=== PATIENT | male | born 2000 | race Caucasian/White ===

== ENCOUNTER 2020-01-28 14:38 | Emergency (ER) | payer OTHER, SELFPAY ==
--- NOTE | ~2020-01-28 | XR_ITS ---
XR knee RT 3V DATE: 01/28/2020 15:11 INDICATION: Twisted knee. Posterior and lateral right knee pain. TECHNIQUE: Crosstable lateral, AP and oblique views COMPARISON: None FINDINGS: No fracture or dislocation or joint effusion, periosteal reaction or bone destruction, radi opaque intra-articular loose body or chondrocalcinosis. Joint spaces are preserved. IMPRESSION: Negative Reviewed, dictated and finalized at location B. IMPRESSION: Negative
[2020-01-28 14:44] VITALS: BP 139/79; PULSE 82; RESP 17; TEMP 36.7; O2SAT 98
--- NOTE | 2020-01-28 14:45 | ED.GENADULT ---
HPI - General Adult General Chief complaint: Extremity Injury, Lower Stated complaint: right knee injury Time Seen by Provider: 01/28/20 14:44 Source: patient Mode of arrival: ambulatory Limitations: no limitations History of Present Illness HPI narrative: Patient is here for evaluation of right knee pain after he slipped on a wet floor and fell this morning. He states that he feels his right kneecap is dislocated or broken. He took 1200 mg of ibuprofen prior to arrival. He did walk into the emergency room. Onset (ago): hour(s) Location: right and lower extremity Severity scale (1-10): >10 (with movement) Relieving factors: rest Exacerbating factors: movement Associated symptoms: denies other symptoms Treatments prior to arrival: NSAID Related Data Home Medications Medication Instructions Recorded Confirmed No Home Medications 01/28/20 01/28/20 Allergies Allergy/AdvReac Type Severity Reaction Status Date / Time bupropion Allergy Severe VIOLENT Verified 01/28/20 15:03 BEHAVIOR Review of Systems Review of Systems: All systems reviewed & are unremarkable except as noted in HPI and below FORMERLY [facility] Social History Social History (Updated 01/28/20 @ 15:02 by Frannie Bass PA-C) Smoking status: Never smoker Alcohol intake: never Substance use: current Occupation/Education: unemployed Additional occupation/education comments: disability Gender identity (if verbalized by the patient): Male Exam Const: General: no acute distress and alert Orientation/consciousness: patient oriented x3 HENMT: Head: normal to inspection Resp: Effort & Inspection: normal respiratory effort Auscultation: clear to auscultation bilaterally Cardio: Rate: regular rate Rhythm: regular rhythm Peripheral pulses: dorsalis pedis present Neuro: General: patient oriented x3 and moves all extremities Extrem: General: normal to inspection and other (extreme pain to mild palpation of right kneecap) Right lower extremity: normal to inspection and normal capillary refill Course Course Emergency Course: X-ray showed no fracture or dislocation on the right knee. No joint effusion. Will place in a knee immobilizer, continue to treat with ibuprofen and ice. Follow-up with primary care physician Discharge Plan Discharge Clinical Impression: Right knee sprain Qualifiers: Encounter type: initial encounter Involved ligament of knee: lateral collateral ligament Qualified Code(s): S83.421A - Sprain of lateral collateral ligament of right knee, initial encounter Patient Disposition: Home, Self-Care Condition: Stable Instructions: Antibiotic Form, Knee Sprain (ED), Knee Immobilizer (ED) Additional Instructions: For your knee immobilizer for the next 2 to 3 days then as needed for comfort. Apply ice to your knee, 20 minutes at a time 2-3 times a day. Take ibuprofen 800 mg every 8 hours, please take with food to avoid GI upset. Follow-up with your primary care physician if not improved after the weekend for further evaluation. Prescriptions: No Action No Home Medications RF: 0 Follow-up/Referrals: Bhanu Tyler MD [Physician] - PHYSICIAN,[facility] [facility] [Primary Care Provider] - Time of Disposition: 15:30
--- NOTE | 2020-01-28 15:39 | PC.NURSE ---
Knee Immobilizer does not fit pt properly (largest size is too small). Pt aware. EDP aware.
== END 2020-01-28 16:07 | disposition home or self-care (01) ==
PROVIDERS: Emergency Provider Emergency Medicine
DX: S83.421A Sprain of lateral collateral ligament of right knee, initial encounter (principal); W01.0XXA Fall on same level from slipping, tripping and stumbling without subsequent striking against object, initial encounter
CPT/HCPCS: 73562; 99283

== ENCOUNTER 2020-01-29 12:29 | Emergency (ER) | payer OTHER, SELFPAY ==
[2020-01-29 12:31] VITALS: BP 104/84; PULSE 86; RESP 18; TEMP 37; O2SAT 100
--- NOTE | 2020-01-29 12:31 | PC.NURSE ---
Pt states that medic is a fucking moron, he said i was 22 and im only 19
--- NOTE | 2020-01-29 13:00 | PC.NURSE ---
Pt kicked out the vending machine technician stating i want to know what the fuck is going on, i already had an xray Charge nurse notified
--- NOTE | 2020-01-29 13:30 | PC.NURSE ---
Kristen RN speaking with patient at this time. Pt agitated at this time.
--- NOTE | 2020-01-29 13:31 | PC.NURSE ---
Pt called out cussing at this RN stating that he wanted to speak with someone that knew what the f is going on . Pt also states that he has been here to fn days and wants help. Pt then states that he FN should have never came to this hospital. I informed pt that i would get his
--- NOTE | 2020-01-29 13:34 | ED.LOWEXIN ---
HPI - Extremity Injury (Lower) General Chief Complaint: Extremity Injury, Lower Stated Complaint: R HIP AND LEG PAIN Time Seen by Provider: 01/29/20 12:33 Source: patient Mode of arrival: EMS Limitations: no limitations History of Present Illness HPI Narrative: Patient presents via EMS with chief complaint of worsening right-sided sciatica pain. Patient states that he came to the emergency department yesterday to be seen for sciatica pain which was worse than his right knee. Patient states that his right knee was imaged and Shakeel wrap was given however he was not given crutches to assist him with walking. Patient states that he did not fall to his knee or back but he stumble they caught himself which caused an exacerbation of his right-sided sciatica yesterday. Patient denies loss of bowel or bladder function. Patient has paresthesia in upper lower extremities. Patient reports having chronic sciatica in the past. Related Data Home Medications Medication Instructions Recorded Confirmed No Home Medications 01/28/20 01/28/20 Allergies Allergy/AdvReac Type Severity Reaction Status Date / Time bupropion Allergy Severe VIOLENT Verified 01/29/20 13:44 BEHAVIOR Review of Systems Review of Systems: Narrative: CONSTITUTIONAL: Denies fever, chills, or sweats. EYES: Denies visual changes, redness, or discharge. ENT: Denies rhinorrhea, congestion, sore throat, or otalgia. CARDIOVASCULAR: Denies chest pain, palpitations, or edema. RESPIRATORY: Denies cough or dyspnea. GASTROINTESTINAL: Denies abdominal pain, nausea, vomiting, or diarrhea. GENITOURINARY: Denies dysuria or hematuria. SKIN: Denies rash or itching. MUSCULOSKELETAL: Reports right-sided sciatica pain denies joint pain, or myalgia. NEUROLOGIC: Denies headache, numbness, dizziness, or weakness. PSYCHIATRIC: Denies anxiety or depression. [facility] Social History Social History (Updated 01/28/20 @ 15:02 by Frannie Bass PA-C) Smoking status: Never smoker Alcohol intake: never Substance use: current Additional occupation/education comments: disability Gender identity (if verbalized by the patient): Male Exam Narrative: Exam Narrative: GENERAL: Well-appearing, well-nourished, and in no acute distress. Obese. HEAD: Normocephalic, atraumatic. EYES: PERRLA and EOMI. NECK: Supple. No adenopathy or masses. Range of motion intact. CHEST: Clear to auscultation. No respiratory distress. No wheezes rales or rhonchi HEART: Regular rate and rhythm. EXTREMITIES: Normal range of motion. No edema. BACK: No outward signs of injury. No spinal tenderness with palpation. Patient reports irritation of right-sided sciatica with palpation of right glutes. Patient declines straight leg raise. SKIN: Warm, dry, no rash. NEURO: No focal deficits. Alert and oriented x3. PSYCH: Normal mood and affect. Course Course Emergency Course: Patient has been cursing and yelling at myself and staff. Patient has been warned on numerous occasions that his behavior is inappropriate. Patient continues to yell profanities to staff despite warnings. Patient is dismissing staff and not allow radiology to take imaging nor is he allowing the nurse to reassess him and provide treatment. Patient has been asked to leave the emergency department due to his aggressive and inappropritat verbal behavior and refusal of care. He does not show signs of needing any emergent intervention for his presenting complaint. Patient is urged to follow-up with his primary care for further management and evaluation. Vital Signs Vital signs: Vital Signs Temperature 98.6 F 01/29/20 12:31 Pulse Rate 86 01/29/20 12:31 Respiratory Rate 18 01/29/20 12:31 Blood Pressure 104/84 01/29/20 12:31 Pulse Oximetry 100 01/29/20 12:31 Temperature 98.6 F 01/29/20 12:31 Pulse Rate 86 01/29/20 12:31 Respiratory Rate 18 01/29/20 12:31 Blood Pressure 104/84 01/29/20 12:31 Pulse Oximetry 100 0
[2020-01-29] MEDS: methylPREDNISolone SOD SUCC 125 MG VIAL IM (13:38)
[2020-01-29] MEDS: KETOROLAC (*BKC) 60 MG/2 ML VIAL 30 MG IM (13:38)
--- NOTE | 2020-01-29 13:40 | PC.NURSE ---
PA spoke with pt and told him he will be discharged, she states that pt was cussing at her and states that he is going [facility].
--- NOTE | 2020-01-29 13:50 | PC.NURSE ---
This RN discharging pt, pt states I am going to [facility], this happens everytime i come here i always have to come back. I can't walk! I need crutches This RN explains that pt is over the weight limit. He states that [employer] sent me here to get crutches Im going to be calling my interventional nurse and suing you Security present and helping pt to the exit
== END 2020-01-29 14:12 | disposition home or self-care (01) ==
PROVIDERS: Emergency Provider Emergency Medicine
DX: M54.31 Sciatica, right side (principal)
CPT/HCPCS: 96372; 99284; J1885; J2930

== ENCOUNTER 2024-03-24 01:55 | Emergency (ER) | payer OTHER, SELFPAY ==
[2024-03-24 02:17] VITALS: BP 130/71; PULSE 68; RESP 15; TEMP 36.4; O2SAT 100
--- NOTE | 2024-03-24 03:05 | ED.GENADULT ---
HPI - General Adult General Chief complaint: Fall Stated complaint: fall Time Seen by Provider: 03/24/24 02:31 History of Present Illness HPI narrative: this is a 23-year-old male requesting a work note after a fall. Patient slipped at work and landed on his back. He has been able to get up and complete his daily work. He was instructed to go to the hospital to get checked out to make sure that nothing was wrong. patient has pain in the right paralumbar area. No radiation down his leg. No difficulty urinating, bowel incontinence or weakness to the leg. Patient has not taking anything for pain medication Related Data Home Medications Medication Instructions Recorded Confirmed No Home Medications 01/28/20 01/28/20 Allergies Allergy/AdvReac Type Severity Reaction Status Date / Time bupropion Allergy Severe VIOLENT Verified 10/22/23 13:16 BEHAVIOR bee pollen Allergy Unknown Verified 03/24/24 02:25 shellfish derived Allergy Unknown Verified 03/24/24 02:25 [facility]LY [facility] Social History Social History (System 10/22/23 @ 13:16 by Ferny Alcocer) Smoking status: Never smoker Alcohol intake: never Substance use: current Occupation/Education: unemployed Additional occupation/education comments: disability Gender identity (if verbalized by the patient): Male Exam Narrative: APPEARANCE: No apparent distress. Head: atraumatic. EYES: EOMI, NOSE: Atraumatic NECK/back: no midline spinal tenderness. Tenderness to palpation over the right paralumbar muscles. RESPIRATORY: No increased rate of breathing CARDIOVASCULAR: RRR, ABDOMINAL: Non-distended MUSCULOSKELETAl: No obvious deformities NEURO: Alert. Cranial nerves 2-12 grossly intact. Sensation light touch, motor function cerebellar function intact for 4 extremities. Gait exam was normal. SKIN:: Warm, dry. Normal color PSYCHIATRIC: Normal affect Course Vital Signs Vital signs: Vital Signs Temperature 97.5 F L 03/24/24 02:17 Pulse Rate 68 03/24/24 02:17 Respiratory Rate 15 03/24/24 02:17 Blood Pressure 130/71 03/24/24 02:17 Pulse Oximetry 100 03/24/24 02:17 Oxygen Delivery Room Air 03/24/24 02:17 Temperature 97.5 F L 03/24/24 02:17 Pulse Rate 68 03/24/24 02:17 Respiratory Rate 15 03/24/24 02:17 Blood Pressure 130/71 03/24/24 02:17 Pulse Oximetry 100 03/24/24 02:17 Oxygen Delivery Room Air 03/24/24 02:17 Medical Decision Making MDM Narrative Medical decision making narrative: -Course: 23-year-old male presenting after a ground level fall. Physical exam remarkable. no indication for imaging. Patient provided a work note and discharged. Given return precautions -DDX includes but is not limited to: lumbago, soft tissue injury, bony injury, sciatica -Co-morbidities complicating care: history of back pain -Shared decision making / Disposition: discharged. Vital Signs Vital Signs: Vital Signs Temperature 97.5 F L 03/24/24 02:17 Pulse Rate 68 03/24/24 02:17 Respiratory Rate 15 03/24/24 02:17 Blood Pressure 130/71 03/24/24 02:17 Pulse Oximetry 100 03/24/24 02:17 Oxygen Delivery Room Air 03/24/24 02:17 Temperature 97.5 F L 03/24/24 02:17 Pulse Rate 68 03/24/24 02:17 Respiratory Rate 15 03/24/24 02:17 Blood Pressure 130/71 03/24/24 02:17 Pulse Oximetry 100 03/24/24 02:17 Oxygen Delivery Room Air 03/24/24 02:17 Discharge Plan Discharge Clinical Impression: Lumbago Patient Disposition: Home, Self-Care Condition: Stable Instructions: Antibiotic Form Additional Instructions: You were seen in the emergency department after a fall. There were no concerning findings on your exam. He can return to work with no restrictions. He can use Motrin Tylenol for pain as needed. Return to ED if you feel weakness to legs, severe pain inability urinate or bowel incontinence. Prescriptions: No Action No Home Medications
== END 2024-03-24 03:29 | disposition home or self-care (01) ==
LOC: ANHED 03:22
PROVIDERS: Emergency Provider Emergency Medicine
DX: M54.50 Low back pain, unspecified (principal); W01.0XXA Fall on same level from slipping, tripping and stumbling without subsequent striking against object, initial encounter
CPT/HCPCS: 99282

== ENCOUNTER 2024-03-27 18:51 | Emergency (ER) | payer OTHER, SELFPAY ==
[2024-03-27 18:59] VITALS: BP 112/60; PULSE 70; RESP 16; TEMP 36.5; O2SAT 100
--- NOTE | 2024-03-27 19:06 | ED.MALEGU ---
HPI - Male Genitourinary General Chief complaint: Urogenital-Male Stated complaint: STD Testing Time Seen by Provider: 03/27/24 19:00 Source: patient Mode of arrival: ambulatory Limitations: no limitations History of Present Illness HPI Narrative: Tunde is a 23-year-old male patient presenting to the clinic today with complaints of possible STD exposure. He reports that a female he was sleeping with contacted him and told her that she tested positive for chlamydia. He and his other significant other is in the clinic today to be tested/treated. Symptoms or any other concerns. Denies any penile discharge or pain with urination. Related Data Allergies Allergy/AdvReac Type Severity Reaction Status Date / Time bupropion Allergy Severe VIOLENT Verified 03/27/24 18:56 BEHAVIOR bee pollen Allergy Unknown Verified 03/27/24 18:56 shellfish derived Allergy Unknown Verified 03/27/24 18:56 Review of Systems Review of Systems: Pertinent positives per HPI. Patient denies any fever, chills, rash, headache, visual changes, dizziness, cough, runny nose, sore throat, shortness of breath, chest pain, palpitations, nausea, vomiting, diarrhea, constipation, abdominal pain, or any urinary issues. PMFSH Social History Social History Smoking status: Never smoker Alcohol intake: never Substance use: current Occupation/Education: unemployed Additional occupation/education comments: disability Gender identity (if verbalized by the patient): Male Comments At the time of my signature, I reviewed and agree with the nursing past medical, surgical, social, and family history. There is no relevant family history pertinent to the patient complaint. Exam Narrative: General: Well-developed, well nourished, in no apparent distress. Head: Normocephalic, atraumatic. Cardio: Regular rate and rhythm, s1 and s2 normal, no murmur appreciated. Resp: Clear to auscultation bilaterally, no rhonchi, rales, wheezing or rubs. Abdomen: Soft, pliable, bowel sounds present in all quadrants, non-tender to palpation, no organomegly, no CVAT tenderness. : Deferred Course Course Emergency Course: Portions of this record may have been created with voice recognition software. Level of Care: Express Care Visit Vital Signs Vital signs: Vital Signs Temperature 36.5 C 03/27/24 18:59 Pulse Rate 70 03/27/24 18:59 Respiratory Rate 16 03/27/24 18:59 Blood Pressure 112/60 03/27/24 18:59 Pulse Oximetry 100 03/27/24 18:59 Oxygen Delivery Room Air 03/27/24 18:59 Temperature 36.5 C 03/27/24 18:59 Pulse Rate 70 03/27/24 18:59 Respiratory Rate 16 03/27/24 18:59 Blood Pressure 112/60 03/27/24 18:59 Pulse Oximetry 100 03/27/24 18:59 Oxygen Delivery Room Air 03/27/24 18:59 Vital signs reviewed MDM - Male Genitourinary MDM Narrative Medical decision making narrative: At the time of visit patient is resting comfortably on the exam table. Patient appears to be nontoxic. Labs: Gonorrhea, chlamydia, and Trichomonas testing was performed and sent to the lab Plan: Patient has had exposure to chlamydia. Will treat with doxycycline and Rocephin 500 mg IM given for gonorrhea coverage. Supportive measures were discussed with the patient and they voiced understanding discharge instructions and agrees to treatment plan. Return precautions reviewed Differential Diagnosis Differential diagnosis: Likely urinary tract infection, urethritis, epididymitis, prostatitis and other (STI) Discharge Plan Discharge Clinical Impression: Exposure to chlamydia Patient Disposition: Home, Self-Care Condition: Stable Instructions: Antibiotic Form, Chlamydia (ED), Safe Sex Practices (ED) Additional Instructions: Rocephin 500 mg IM given in the clinic today to treat gonorrhea Take doxycycline as prescribed-this will treat chlamydia We have teste
[2024-03-27] MEDS: cefTRIAXone 500 MG, LIDOCAINE HCL 1% LOCAL INJ 1 ML IM (19:14)
[2024-03-28 19:53] LABS: Trichomonas Vag PCR NOT DETECTED (NOT DETECTE)
[2024-03-28 20:20] LABS: Chlamydia trachomatis NOT DETECTED (NOT DETECTE); Neisseria gonorrhoeae PCR NOT DETECTED (NOT DETECTE)
== END 2024-03-27 19:20 | disposition home or self-care (01) ==
PROVIDERS: Emergency Provider Nurse Practitioner Family
DX: Z20.2 Contact with and (suspected) exposure to infections with a predominantly sexual mode of transmission (principal)
CPT/HCPCS: 87491; 87591; 87661; 96372; 99213; G0463; J0696

== ENCOUNTER 2024-04-10 12:59 | Emergency (ER) | payer OTHER, SELFPAY ==
[2024-04-10 13:06] VITALS: BP 128/62; PULSE 88; RESP 16; TEMP 39.6; O2SAT 99
[2024-04-10] MEDS: IBUPROFEN 600 MG TABLET PO (14:01)
--- NOTE | 2024-04-10 22:31 | ED.URI ---
HPI - URI/Sore Throat General Chief Complaint: Upper Respiratory Infection Stated Complaint: Sore Throat/Chills/Body Aches Time Seen by Provider: 04/10/24 13:57 Source: patient, RN notes reviewed and old records reviewed Mode of arrival: ambulatory Limitations: no limitations History of Present Illness HPI Narrative: 23-year-old male to Express Care for complaint of fever, chills, body aches, sore throat, fever since yesterday. Patient denies cough, shortness of breath, chest pain, ear pain. Patient has not attempted to treat at home; states he does not have any [id number] medications at home. Patient able to tolerate fluids by mouth. Respirations even and nonlabored. Patient appears tired and acutely ill. No acute distress noted. Related Data Allergies Allergy/AdvReac Type Severity Reaction Status Date / Time bupropion Allergy Severe VIOLENT Verified 04/10/24 13:13 BEHAVIOR bee pollen Allergy Unknown Verified 04/10/24 13:13 shellfish derived Allergy Unknown Verified 04/10/24 13:13 Review of Systems Review of Systems: All systems reviewed & are unremarkable except as noted in HPI and below Constitutional: Constitutional: Reports as per HPI, Reports body ache(s), Reports chills, Reports fatigue and Reports fever(s) Eyes: Eyes: Reports no additional eye complaints ENT: Reports as per HPI, Denies otalgia and Reports sore throat Cardiovascular: Cardiovascular: Reports no additional cardiovascular complaints, Denies chest pain and Denies dyspnea Respiratory: Respiratory: Reports no additional respiratory complaints, Denies cough and Denies dyspnea Musculoskeletal: Musculoskeletal: Reports no additional musculoskeletal complaints Neurologic: Reports system reviewed and no additional complaints, except as documented Psychiatric: Psychiatric: Reports no additional psychiatric complaints PMFSH Social History Social History Smoking status: Never smoker Alcohol intake: never Substance use: current Occupation/Education: unemployed Additional occupation/education comments: disability Gender identity (if verbalized by the patient): Male Comments At the time of my signature, I reviewed and agree with the nursing past medical, surgical, social, and family history. There is no relevant family history pertinent to the patient complaint. Exam Const: General: cooperative, no acute distress, alert, ill appearing acutely, tired appearing, uncomfortable and well nourished Nutritional Appearance: well nourished Orientation/consciousness: patient oriented x3 Limitations: no limitations HENMT: Head: normal to inspection Ears: external ears normal Face/Nose/Sinus: Normal external nose present, Normal nares present, normal facial exam, No erythema and No edema Face and sinus: normal facial exam, no erythema and no edema Mouth: Yes Normal oral and palatal mucosa present Throat: abnormal tonsil bilateral erythema, exudates and hypertrophy 2+, posterior oropharynx abnormal erythema and postnasal drainage Eyes: General: appearance normal, both eyes and all related structures Neck: Neck: normal visual inspection, full ROM and no meningeal signs Lymphatic: no lymphadenopathy noted and no lymphedema noted Chest: Chest palpation & inspection: normal inspection of the chest Resp: Effort & Inspection: normal respiratory effort and able to speak in complete sentences Auscultation: clear to auscultation bilaterally Cardio: Jugular venous distension: no JVD Rate: regular rate Rhythm: regular rhythm Back/Spine/Pelvis: Cervical Spine: cervical ROM normal Skin: General skin exam: no rashes or lesions noted, turgor normal and pallor Neuro: General: patient oriented x3, gait normal, moves all extremities and no meningeal signs Speech: normal speech Gait exam (Neuro): Normal gait present Extrem: General: normal to inspection, full ROM and capillary refill norm
== END 2024-04-10 14:03 | disposition home or self-care (01) ==
PROVIDERS: Emergency Provider Nurse Practitioner Family
DX: J02.0 Streptococcal pharyngitis (principal); Z20.822 Contact with and (suspected) exposure to COVID-19
CPT/HCPCS: 87426; 87804; 87880; 99213; A9270; G0463

== ENCOUNTER 2024-06-11 18:44 | Emergency (ER) | payer OTHER, SELFPAY ==
[2024-06-11 18:49] VITALS: BP 114/69; PULSE 79; RESP 16; TEMP 37.1; O2SAT 99
--- NOTE | 2024-06-11 18:57 | ED.SKABFB ---
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 Pt applied yellow mustard to the finger, which took the stinging pain away. Says his hand is locked up and feels like mouth is dry. Denies sob, wheezing, lip swelling, n/v/d/f/c. Related Data Allergies Allergy/AdvReac Type Severity Reaction Status Date / Time bupropion Allergy Severe VIOLENT Verified 04/10/24 13:13 BEHAVIOR bee pollen Allergy Unknown Verified 04/10/24 13:13 shellfish derived Allergy Unknown Verified 04/10/24 13:13 Review of Systems Review of Systems: CONSTITUTIONAL: Denies body aches, fever, chills, or sweats. EYES: Denies visual changes, redness, or discharge. ENT: Denies rhinorrhea, congestion CARDIOVASCULAR: Denies chest pain, palpitations, or edema. RESPIRATORY: Denies cough or dyspnea. GASTROINTESTINAL: Denies abdominal pain, nausea, vomiting, or diarrhea. SKIN: reports insect sting left abdomen, left hand MUSCULOSKELETAL: Denies back pain, joint pain, or myalgia. NEUROLOGIC: Denies headache, numbness, tingling, or weakness. [facility] Social History Social History Smoking status: Never smoker Alcohol intake: never Substance use: current Occupation/Education: unemployed Additional occupation/education comments: disability Gender identity (if verbalized by the patient): Male Comments At time of signature, I have reviewed and agree with nursing past medical, surgical, social and family history unless otherwise noted. Please see nursing chart for further information. There is no relevant family history pertinent to the presenting complaint Exam Narrative: GENERAL: Well-appearing HEAD: Normocephalic, atraumatic. EYES: conjunctivae clear, and EOMI. ENT: Mucous membranes moist. Oropharynx without edema, erythema or lesions. NECK: Supple. No lymphadenopathy CHEST: Clear to auscultation. HEART: Regular rate and rhythm. SKIN: Warm, dry. approximately 1.5 cm area of erythema to left mid abdomen, no induration, streaking, warmth or tenderness. Left 3rd digit with superficial puncture to proximal phalanx, minimal swelling and erythema to the proximal phalanx, CMS intact. NEURO: Alert and oriented x3. Course Course Emergency Course: Patient is aware of diagnosis, understands and agrees to treatment plan. Anticipatory guidance given. Patient agrees to follow-up as directed and is aware of reasons to seek care at the emergency department. Portions of this record may have been created with voice recognition software Level of Care: Express Care Visit Vital Signs Vital signs: Vital Signs Temperature 98.8 F 06/11/24 18:49 Pulse Rate 79 06/11/24 18:49 Respiratory Rate 16 06/11/24 18:49 Blood Pressure 114/69 06/11/24 18:49 Pulse Oximetry 99 06/11/24 18:49 Oxygen Delivery Room Air 06/11/24 18:49 Temperature 98.8 F 06/11/24 18:49 Pulse Rate 79 06/11/24 18:49 Respiratory Rate 16 06/11/24 18:49 Blood Pressure 114/69 06/11/24 18:49 Pulse Oximetry 99 06/11/24 18:49 Oxygen Delivery Room Air 06/11/24 18:49 Reviewed MDM - Skin/Abscess/Foreign Bdy MDM Narrative Medical decision making narrative: mustard was cleansed off of the digit, minimal erythema and swelling noted. Advised Benadryl. Instructed patient to go to nearest ER immediately for any worsening symptoms including but not limited to: fever, spreading rash, pain, sore throat, headache, dizziness, chest pain, trouble breathing, or any symptoms concerning to the patient. Differential Diagnosis Differential diagnosis: Likely
== END 2024-06-11 19:21 | disposition home or self-care (01) ==
PROVIDERS: Emergency Provider Nurse Practitioner Family
DX: T63.441A Toxic effect of venom of bees, accidental (unintentional), initial encounter (principal); S60.423A Blister (nonthermal) of left middle finger, initial encounter
CPT/HCPCS: 99211; G0463

== ENCOUNTER 2024-09-23 12:53 | Emergency (ER) | payer OTHER, SELFPAY ==
--- NOTE | ~2024-09-23 | XR_ITS ---
XR chest 2V Ordering provider: Corina Cummings APRN History: 24 years Male with . cough; n/v/d . Comparison: None. FINDINGS: MEDIASTINUM: The cardiac silhouette is not enlarged. LUNGS: No infiltrates, effusions or pneumothorax. OTHER: No free air under the diaphragm. IMPRESSION: No acute cardiopulmonary pathology. Reviewed, dictated and finalized at location A. RITIES RESEARCH ANALYST
[2024-09-23 12:57] VITALS: BP 107/63; PULSE 63; RESP 20; TEMP 36.6; O2SAT 100
[2024-09-23 13:10] VITALS: BP 107/63; PULSE 63; RESP 20; TEMP 36.6; O2SAT 100
--- NOTE | 2024-09-23 21:40 | ED.NAVMDI ---
HPI - Nausea/Vomiting/Diarrhea General Chief complaint: Nausea/Vomiting/Diarrhea Stated complaint: flu symptoms Time Seen by Provider: 09/23/24 13:15 Source: patient, RN notes reviewed and old records reviewed Mode of arrival: ambulatory Limitations: no limitations History of Present Illness HPI Narrative: 24-year-old male to Express Care diarrhea that started 3 days ago. Patient also endorsing cough for 5 days, nonproductive. Patient does not endorse attempted to treat symptoms home. Patient able tolerate fluids by mouth. Patient denies fever shortness of breath, urinary changes, pertinent medical history. Patient resting comfortably in exam room in no acute distress. Related Data Home Medications Medication Instructions Recorded Confirmed No Home Medications 09/23/24 09/23/24 Allergies Allergy/AdvReac Type Severity Reaction Status Date / Time bupropion Allergy Severe VIOLENT Verified 09/23/24 13:10 BEHAVIOR bee pollen Allergy Unknown Verified 09/23/24 13:10 shellfish derived Allergy Unknown Verified 09/23/24 13:10 Review of Systems Review of Systems: All systems reviewed & are unremarkable except as noted in HPI and below Constitutional: Constitutional: Reports no additional constitutional complaints Eyes: Eyes: Reports no additional eye complaints ENT: Reports system reviewed and no additional complaints, except as documented Cardiovascular: Cardiovascular: Reports no additional cardiovascular complaints, Denies chest pain and Denies dyspnea Respiratory: Respiratory: Reports no additional respiratory complaints, Reports cough and Denies dyspnea Gastrointestinal: Gastrointestinal: Reports as per HPI, Reports diarrhea, Reports nausea and Reports vomiting Musculoskeletal: Musculoskeletal: Reports no additional musculoskeletal complaints Neurologic: Reports system reviewed and no additional complaints, except as documented Psychiatric: Psychiatric: Reports no additional psychiatric complaints PMFSH Social History Social History Smoking status: Never smoker Alcohol intake: never Substance use: current Occupation/Education: unemployed Additional occupation/education comments: disability Gender identity (if verbalized by the patient): Male Comments At the time of my signature, I reviewed and agree with the nursing past medical, surgical, social, and family history. There is no relevant family history pertinent to the patient complaint. Exam Const: General: cooperative, comfortable, no acute distress, alert, tired appearing and well nourished Nutritional Appearance: well nourished Orientation/consciousness: patient oriented x3 Limitations: no limitations HENMT: Head: normal to inspection Ears: external ears normal Face/Nose/Sinus: Normal external nose present, Normal nares present, normal facial exam, No erythema and No edema Face and sinus: normal facial exam, no erythema and no edema Mouth: Yes Normal oral and palatal mucosa present Eyes: General: appearance normal, both eyes and all related structures Neck: Neck: normal visual inspection, full ROM and no meningeal signs Chest: Chest palpation & inspection: normal inspection of the chest Resp: Effort & Inspection: normal respiratory effort and able to speak in complete sentences Auscultation: clear to auscultation bilaterally Cardio: Jugular venous distension: no JVD Rate: regular rate Rhythm: regular rhythm GI: Inspection: normal to inspection Back/Spine/Pelvis: Cervical Spine: cervical ROM normal Skin: General skin exam: normal color, no rashes or lesions noted and turgor normal Neuro: General: patient oriented x3, gait normal, moves all extremities and no meningeal signs Speech: normal speech Gait exam (Neuro): Normal gait present Extrem: General: normal to inspection, full ROM and capillary refill normal Psych: Appearance: grossly normal and well kempt Course Course Emergency Course: Some parts of this dictation were generated by voice recognition software and may contain typographical and/or grammatical inaccuracies. Level of Care: Express Care Visit Vital Signs Vital signs: Vital Signs Temperature 36.6 C 09/23/24 12:57 Pulse Rate 63 09/23/24 12:57 Respiratory Rate 20 09/23/24 12:57 Blood Pressure 107/63 09/23/24 12:57 Pulse Oximetry 100 09/23/24 12:57 Oxygen Delivery Room Air 09/23/24 12:57 Temperature 36.6 C 09/23/24 13:10 Pulse Rate 63 09/23/24 13:10 Respiratory Rate 20 09/23/24 13:10 Blood Pressure 107/63 09/23/24 13:10 Pulse Oximetry 100 09/23/24 13:10 Oxygen Delivery Room Air 09/23/24 13:10 reviewed MDM - Nausea/Vomiting/Diarrhea MDM Narrative Medical decision making narrative: 24-year-old male to Express Care diarrhea that started 3 days ago. Patient also endorsing cough for 5 days, nonproductive. Patient does not endorse attempted to treat symptoms home. Patient able tolerate fluids by mouth. Patient denies fever shortness of breath, urinary changes, pertinent medical history. Patient resting comfortably in exam room in no acute distress. Patient exam unremarkable. Chest x-ray in clinic negative for acute findings. Patient is sitting comfortably in exam room nontoxic in appearance. Patient appropriate for outpatient treatment and follow-up. Discharge instructions reviewed with patient, as well as provided in writing per nursing staff. The instructions also include specific and strict return/GO TO THE ER as well as f/u information. All questions have been answered, and the patient deny any further questions with discharge and discharge plan. Some parts of this dictation were generated by voice recognition software and may contain typographical and/or grammatical inaccuracies. Differential Diagnosis Differential diagnosis: Likely traveler's diarrhea, food poisoning, gastroenteritis, clostridium difficile infection, drug-induced nausea and vomiting and dehydration Imaging Data Radiologist's impression: XR chest 2V Ordering provider: Corina Cummings APRN History: 24 years Male with . cough; n/v/d . Comparison: None. FINDINGS: MEDIASTINUM: The cardiac silhouette is not enlarged. LUNGS: No infiltrates, effusions or pneumothorax. OTHER: No free air under the diaphragm. IMPRESSION: No acute cardiopulmonary pathology. Discharge Plan Discharge Clinical Impression: Gastroenteritis Patient Disposition: Home, Self-Care Condition: Stable Instructions: Gastroenteritis (DC) Additional Instructions: Please review attached instructions and implement suggestions as tolerated for new or worsening symptoms go directly to the emergency department Prescriptions: No Action No Home Medications Follow-up/Referrals: PHYSICIAN,BUSINESS SYSTEMS CONSULTANT [Primary Care Provider] - Stand Alone Forms: Work/School Release IP
== END 2024-09-23 14:30 | disposition home or self-care (01) ==
PROVIDERS: Emergency Provider Nurse Practitioner Family
DX: K52.9 Noninfective gastroenteritis and colitis, unspecified (principal)
CPT/HCPCS: 71046; 99213; G0463

== ENCOUNTER 2024-11-13 12:32 | Emergency (ER) | payer OTHER, SELFPAY ==
--- NOTE | 2024-11-13 12:39 | ED.URI ---
HPI - URI/Sore Throat General Chief Complaint: Upper Respiratory Infection Stated Complaint: cough/trouble breathing Time Seen by Provider: 11/13/24 12:51 Source: patient and RN notes reviewed Mode of arrival: ambulatory Limitations: no limitations History of Present Illness HPI Narrative: 24-year-old male presents concern for to 3 day history of cough, chest congestion, shortness of breath. He denies fever, chills. Reports body aches. He reports he uses cannabis. He reports history of asthma as a child MD elicited complaint: cough Related Data Allergies Allergy/AdvReac Type Severity Reaction Status Date / Time bupropion Allergy Severe VIOLENT Verified 09/23/24 13:10 BEHAVIOR bee pollen Allergy Unknown Verified 09/23/24 13:10 shellfish derived Allergy Unknown Verified 09/23/24 13:10 Review of Systems Review of Systems: CONSTITUTIONAL: Denies malaise, chills, sweats, or fever. EYES: Denies visual changes, redness, or discharge. ENT: Denies rhinorrhea, congestion, sinus pain, otalgia and sore throat. CARDIOVASCULAR: Denies chest pain, palpitations, or edema. RESPIRATORY: Reports cough, dyspnea. GASTROINTESTINAL: Denies abdominal pain, nausea, vomiting, diarrhea SKIN: Denies rash or itching. MUSCULOSKELETAL: Reports myalgia. NEUROLOGIC: Denies headache. All systems reviewed & are unremarkable except as noted in HPI and below PMFSH Social History Social History Smoking status: Never smoker Alcohol intake: never Substance use: current Occupation/Education: unemployed Additional occupation/education comments: disability Gender identity (if verbalized by the patient): Male Comments At time of signature, agree with nursing past medical, surgical, social and family history. There is no relevant family history pertinent to the presenting complaint Exam Narrative: GENERAL: Well-appearing, well-nourished, and in no acute distress. HEAD: Normocephalic EYES: PERRLA, conjunctivae clear ENT: Nares clear. Mucous membranes moist. TM pearly still with sharp light reflex bilaterally; no tragal tenderness. Oropharynx not erythematous without lesions. Tonsils not enlarged and without exudate, no drooling, no hoarseness, no trismus, uvula midline. NECK: Supple. No lymphadenopathy CHEST: Scattered wheeze, breath sounds equal. No rhonchi, rales, or stridor. No respiratory distress, speaks in full sentences. HEART: Regular rate and rhythm. No murmur heard. SKIN: Warm, dry, no rash. NEURO: Alert and oriented x3. PSYCH: Normal mood and affect Course Course Emergency Course: Patient is aware of diagnosis, understands and agrees to treatment plan. Anticipatory guidance given. Patient agrees to follow-up as directed and is aware of reasons to seek care at the emergency department. Portions of this record may have been created with voice recognition software Level of Care: Express Care Visit Vital Signs Vital signs: Vital Signs Temperature 97.2 F L 11/13/24 12:48 Pulse Rate 66 11/13/24 12:48 Respiratory Rate 16 11/13/24 12:48 Blood Pressure 120/78 11/13/24 12:48 Pulse Oximetry 100 11/13/24 12:48 Oxygen Delivery Room Air 11/13/24 12:48 Temperature 97.2 F L 11/13/24 12:48 Pulse Rate 66 11/13/24 12:48 Respiratory Rate 16 11/13/24 12:48 Blood Pressure 120/78 11/13/24 12:48 Pulse Oximetry 100 11/13/24 12:48 Oxygen Delivery Room Air 11/13/24 12:48 Reviewed. MDM - URI/Sore Throat MDM Narrative Medical decision making narrative: Differential diagnosis considered: [place] virus, strep pharyngitis, allergic rhinitis, upper respiratory tract infection, sinusitis, rhinosinusitis, nasopharyngitis. viral pharyngitis, otitis media, otitis externa, pneumonia, bronchitis, viral cough syndrome, viral syndrome, and influenza. Exam findings show no acute concerns or changes; patient is non-toxic appearing and is in no distress. Patient is appropriate for outpatient treatment and follow-up. Lab Data Attestation: I reviewed the patient's lab results. Critical Care Time Critical Care Time Critical Care Time: No Discharge Plan Discharge Clinical Impression: Bronchitis with wheezing Patient Disposition: Home, Self-Care Condition: Stable Instructions: How to Use a Metered-Dose Inhaler (ED) Additional Instructions: 1) Please follow-up with your primary care doctor in the next 1-2 days. 2) If you have any worsening of symptoms or any other urgent concerns please go to the ER. 3) Please take medications as prescribed and continue taking your home medications as usual. 4) Please read and follow information included in discharge instructions. Patient Language: Romanian Prescriptions: New prednisone 20 mg tablet 40 mg PO DAILY 5 Days Qty: 10 0RF albuterol sulfate 90 mcg/actuation HFA aerosol inhaler 2 puff INHALATION QID PRN (Reason: shortness of breath or wheezing) Qty: 8.5 0RF Follow-up/Referrals: PHYSICIAN,VACUUM CLEANER ASSEMBLER [Primary Care Provider] - Stand Alone Forms: Work/School Release IP Time of Disposition: 13:01
[2024-11-13 12:48] VITALS: BP 120/78; PULSE 66; RESP 16; TEMP 36.2; O2SAT 100
== END 2024-11-13 13:07 | disposition home or self-care (01) ==
PROVIDERS: Emergency Provider Nurse Practitioner
DX: J40 Bronchitis, not specified as acute or chronic (principal); R06.2 Wheezing
CPT/HCPCS: 99213; G0463

== ENCOUNTER 2025-01-24 12:34 | Emergency (ER) | payer OTHER, SELFPAY ==
--- NOTE | ~2025-01-24 | CT_ITS ---
CT of the Abdomen and Pelvis: Indication: Abdominal pain Technique: 2.5 mm axial scans were obtained through the abdomen and pelvis following intravenous adm inistration of 100 cc of Omnipaque 350. Dose reduction technique was used on this scan by utilizing a utomated exposure control and iterative reconstruction technique. The dose-length product (DLP) was 1 282.11 mGy-cm. Findings: Scans through the lung bases are unremarkable. The liver, spleen, pancreas, adrenals and kidneys are within normal limits. Cholecystectomy clips are present. No evidence of aortic aneurysm. No lymphadenopathy. No bowel obstruction or bowel wall thickening. Normal appendix. Images through the pelvis were performed. Urinary bladder unremarkable. No pelvic mass seen. Impression: No acute abnormality. Reviewed, dictated and finalized at [facility]. Impression: No acute abnormality.
--- OUTSIDE RECORDS SUMMARY | 2025-01-24 12:37 | XMS_ITS | CONTINUITY OF CARE DOCUMENT ---
Author Name fernando king Address Unknown Organization [facility] Address [address] [place] [address] Phone [phone] Care Team Providers Care Outsole Splicer Name Role Phone Onesimo ESPINOSA, Gabriel Unavailable INSURANCE PROVIDERS Payer name Policy type / Coverage type [place] red green party ID HE[employer] AND FAMILY [employer] Medicaid 1 [id number]
[2025-01-24 12:45] VITALS: BP 118/61; PULSE 62; RESP 20; TEMP 36.8; O2SAT 99
[2025-01-24 13:09] LABS: Basophils Percent Auto 0.4 % (0.2-1.2); Eosinophils Absolute Auto 0.2 K/mm3 (0-0.3); Eosinophils Percent Auto 2.4 % (0-4.4); Hematocrit 45.8 % (42.0-52.0); Hemoglobin 16.1 g/dL (14.0-18.0); Immature Granulocyte Absolute 0.01 K/mm3 (0.00-0.031); Immature Granulocyte Percent A 0.1 % (0-0.5); Lymphocytes Absolute Auto 1.98 K/mm3 (0.9-3.2); Lymphocytes Percent Auto 23.7 % (18.3-44.2); Mean Corpuscular HGB Conc 35.2 g/dl (32-36); Mean Corpuscular Hemoglobin 30.8 pg (26-34); Mean Corpuscular Volume 87.7 fl (80-100); Mean Platelet Volume 9.2 fl (7.4-10.4); Monocytes Absolute Auto 0.8 K/mm3 (0.1-0.6); Monocytes Percent Auto 9.2 % (2.6-8.5); Neutrophils Absolute Auto 5.4 K/mm3 (1.3-6.7); Neutrophils Percent Auto 64.2 % (45.5-73.1); Platelet Count Result 226 k/mm3 (150-375); Red Blood Count 5.22 M/mm3 (4.6-6.20); White Blood Count 8.3 K/mm3 (4.5-10.0)
[2025-01-24 13:15] LABS: Add Urine Microscopic? YES; Appearance Urine Clear (Clear); Bacteria Urine None Seen /hpf; Bilirubin Urine Negative (Negative); Blood Urine Negative (Negative); Color Urine Yellow (Yellow); Glucose Urine UA Negative (Negative); Ketones Urine Trace mg/dL (Negative); Leukocyte Esterase Ur Negative LEU/UL (Negative); Nitrate Urine Negative (Negative); Non Pathogenic Casts 0-2; Protein Urine Trace mg/dL (Negative); RBC Urine 0-2 /hpf (0-2); Specific Grav Ur 1.025 (1.001-1.035); Squamous Epithelial Cell Urine None Seen /hpf (Few); WBC Urine 0-5 /hpf (0-3)
[2025-01-24 13:20] LABS: Alanine Aminotransferase 22 U/L (6-50); Albumin Level 4.8 g/dL (3.5-5.1); Alkaline Phosphatase 58 U/L (38-126); Anion Gap 14 mmol/L (4-12); Aspartate Amino Transferase 23 U/L (17-59); Bilirubin,Total 0.5 mg/dL (0.2-1.3); Blood Urea Nitrogen 10 mg/dL (9-20); Calcium 9.4 mg/dL (8.4-10.2); Carbon Dioxide 21 mmol/L (22-30); Chloride 106 mmol/L (98-107); Estimated Glomerular Filt Rate > 60; Glucose 96 mg/dL (65-110); Lipase 178 U/L (23-300); Potassium 4.1 mmol/L (3.4-5.0); Sodium 141 mmol/L (137-145)
--- OUTSIDE RECORDS SUMMARY | 2025-01-24 13:21 | XMS_ITS | CONTINUITY OF CARE DOCUMENT ---
Author Name fernando king Address Unknown Organization [facility] Address [address] [place] [address] Phone [phone] Care Team Providers Care Customs Compliance Director Name Role Phone Onesimo ESPINOSA, Gabriel Unavailable [phone] INSURANCE PROVIDERS Payer name Policy type / Coverage type [place] [employer] party ID HEALTHCARE AND FAMILY SERVICES Medicaid 1 [id number]
--- NOTE | 2025-01-24 13:28 | ED.GENADULT ---
HPI - General Adult General Chief complaint: Abdominal Pain Stated complaint: RLQ ABD PAIN FOR MONTHS Time Seen by Provider: 01/24/25 13:01 History of Present Illness HPI narrative: [age] old male presents to the emergency department for evaluation for 3 months of intermittent abdominal pain with associated nausea and vomiting. Patient felt that he had acutely worsening right lower quadrant abdominal pain. Patient does admit to THC use daily. Patient does have prior history of a cholecystectomy in 2018 Related Data Allergies Allergy/AdvReac Type Severity Reaction Status Date / Time bupropion Allergy Severe VIOLENT Verified 01/24/25 12:36 BEHAVIOR bee pollen Allergy Unknown Verified 01/24/25 12:36 shellfish derived Allergy Unknown Verified 01/24/25 12:36 TIDE DETERGENT Allergy Rash Uncoded 01/24/25 12:36 Review of Systems Review of Systems: All systems reviewed & are unremarkable except as noted in HPI and below PMFSH Social History Social History Smoking status: Never smoker Alcohol intake: never Substance use: current Occupation/Education: unemployed Additional occupation/education comments: disability Gender identity (if verbalized by the patient): Male Exam Narrative: APPEARANCE: Well appearing, no pain, no distress, well-nourished. HEAD: normocephalic, atraumatic. EYES: PERRLA/EOMI, conjunctivae clear. NOSE: Normal no drainage EARS:TMS clear with good light reflex. THROAT: Pharynx clear, no exudate. NECK: Supple. No adenopathy, no masses. RESPIRATORY: Airway patent, respirations nonlabored. Clear to auscultation bilaterally, no rales, rhonchi, wheezing. CARDIOVASCULAR: Regular rate and rhythm without murmurs rubs or gallops. ABDOMINAL: Right lower quadrant abdominal tenderness to palpation MUSCULOSKELETAL: Moves all extremities. Strength/ROM intact, No edema, No calf tenderness. NEURO: Alert. Cranial nerves II through XII intact. Good gait. Good coordination SKIN: Warm, dry. Normal Color Course Vital Signs Vital signs: Vital Signs Temperature 98.2 F 01/24/25 12:45 Pulse Rate 62 01/24/25 12:45 Respiratory Rate 20 01/24/25 12:45 Blood Pressure 118/61 01/24/25 12:45 Pulse Oximetry 99 01/24/25 12:45 Temperature 97.8 F 01/24/25 14:21 Pulse Rate 57 L 01/24/25 14:21 Respiratory Rate 16 01/24/25 14:21 Blood Pressure 134/65 01/24/25 14:21 Pulse Oximetry 100 01/24/25 14:21 Medical Decision Making MDM Narrative Medical decision making narrative: [age] old male presenting emergency department for evaluation for lower abdominal pain. Patient does have prior history of cholecystectomy. Patient is currently afebrile with no leukocytosis hemoglobin of 16.1. Patient has no significant abnormalities on his CMP urine was negative for infection and for blood. CT abdomen pelvis showed no acute abnormalities. Patient does describe chronic intermittent abdominal pain with associated THC use. Patient was encouraged close follow-up with a GI physician and was also advised on the risks of cannabinoid hyperemesis syndrome. Differential Diagnosis Differential Diagnosis: Colitis, diverticulitis, appendicitis, COVID, RSV, influenza, cannabinoid hyperemesis syndrome Vital Signs Vital Signs: Vital Signs Temperature 98.2 F 01/24/25 12:45 Pulse Rate 62 01/24/25 12:45 Respiratory Rate 20 01/24/25 12:45 Blood Pressure 118/61 01/24/25 12:45 Pulse Oximetry 99 01/24/25 12:45 Temperature 97.8 F 01/24/25 14:21 Pulse Rate 57 L 01/24/25 14:21 Respiratory Rate 16 01/24/25 14:21 Blood Pressure 134/65 01/24/25 14:21 Pulse Oximetry 100 01/24/25 14:21 Lab Data Lab results reviewed: Yes I reviewed the patient's lab results. 01/24/25 13:03 01/24/25 13:03 Labs: Lab Results 01/24/25 Range/Units 13:03 WBC 8.3 (4.5-10.0) K/mm3 RBC 5.22 (4.6-6.20) M/mm3 Hgb 16.1 (14.0-18.0) g/dL Hct 45.8 (42.0-52.0) % MCV 87.7 (80-100) fl MCH 30.8 (26-34) pg MCHC 35.2 (32-36) g/dl RDW 12.0 (11.5-14.5) % Plt Count 226 (150-375) k/mm3 MPV 9.2 (7.4-10.4) fl Immature Gran % (Auto) 0.1 (0-0.5) % Neut % (Auto) 64.2 (45.5-73.1) % Lymph % (Auto) 23.7 (18.3-44.2) % [place] % (Auto) 9.2 H (2.6-8.5) % Eos % (Auto) 2.4 (0-4.4) % Baso % (Auto) 0.4 (0.2-1.2) % Lymph # (Auto) 1.98 (0.9-3.2) K/mm3 Morris # (Auto) 0.8 H (0.1-0.6) K/mm3 Eos # (Auto) 0.2 (0-0.3) K/mm3 Baso # (Auto) 0.0 (0.0-0.1) K/mm3 Abs Immat Gran (auto) 0.01 (0.00-0.031) K/mm3 Absolute Neuts (auto) 5.4 (1.3-6.7) K/mm3 Absolute Nucleated RBC 0.000 (0.0-0.012) K/mm3 Nucleated RBC % 0.0 (0.0-0.2) % Sodium 141 (137-145) mmol/L Potassium 4.1 (3.4-5.0) mmol/L Chloride 106 (98-107) mmol/L Carbon Dioxide 21 L (22-30) mmol/L Anion Gap 14 H (4-12) mmol/L BUN 10 (9-20) mg/dL Creatinine 0.78 (0.7-1.3) mg/dL Estim Creat Clear Calc Not Reportable Estimated GFR > 60 (59 - ) Glucose 96 (65-110) mg/dL Calcium 9.4 (8.4-10.2) mg/dL Total Bilirubin 0.5 (0.2-1.3) mg/dL AST 23 (17-59) U/L ALT 22 (6-50) U/L Alkaline Phosphatase 58 (38-126) U/L Total Protein 8.0 (6.3-8.2) g/dL Albumin 4.8 (3.5-5.1) g/dL Lipase 178 (23-300) U/L Urine Color Yellow (Yellow) Urine Appearance Clear (Clear) Urine pH 6.0 (5.0-9.0) Ur Specific [place] 1.025 (1.001-1.035) Urine Protein Trace (Negative) mg/dL Urine Glucose (UA) Negative (Negative) mg/dL Urine Ketones Trace H (Negative) mg/dL Ur Blood (Man) Negative (Negative) Urine Nitrate Negative (Negative) Urine Bilirubin Negative (Negative) Urine Urobilinogen 1.0 (<2.0) mg/dL Leukocyte Esterase Rfl Negative (Negative) ANI/UL Urine RBC 0-2 (0-2) /hpf Urine WBC 0-5 (0-3) /hpf Ur Squamous Epith Cells None seen (Few) /hpf Urine Bacteria None seen /hpf Urine Casts 0-2 Imaging Data Radiologist's impression: Impressions Abdomen/Pelvis CT 01/24/25 13:41 Impression: No acute abnormality. Discharge Plan Discharge Clinical Impression: Abdominal pain, Nausea & vomiting Patient Disposition: Home, Self-Care Condition: Stable Instructions: Antibiotic Form, Clear Liquid Diet (ED), Abdominal Pain (ED) Additional Instructions: Clear liquid diet for the next 1-3 days. Zofran as needed for nausea control. Advance to a bland diet as tolerated. Have close follow-up with GI. Educate yourself on cannabinoid hyperemesis syndrome. Patient Language: Divehi Prescriptions: New ondansetron 4 mg tablet,disintegrating 4 mg PO Q8H PRN (Reason: nausea and vomiting) Qty: 14 0RF No Action prednisone 20 mg tablet 40 mg PO DAILY 5 Days Qty: 10 0RF albuterol sulfate 90 mcg/actuation HFA aerosol inhaler 2 puff INHALATION QID PRN (Reason: shortness of breath or wheezing) Qty: 8.5 0RF Follow-up/Referrals: PHYSICIAN,LONG TERM CARE ADMINISTRATOR [Primary Care Provider] - Toby Gold MD [Physician] -
[2025-01-24] MEDS: HALOPERIDOL LACTATE 5 MG/ML VIAL IM (13:46)
[2025-01-24] MEDS: PANTOPRAZOLE SODIUM IV 40 MG VIAL IV PUSH (13:48)
[2025-01-24] MEDS: FAMOTIDINE 20 MG/2 ML VIAL IV PUSH (13:51)
[2025-01-24 14:21] VITALS: BP 134/65; PULSE 57; RESP 16; TEMP 36.6; O2SAT 100
== END 2025-01-24 14:40 | disposition home or self-care (01) ==
PROVIDERS: Student in an Organized Health Care Education/Training Program; Emergency Provider Emergency Medicine
DX: R10.31 Right lower quadrant pain (principal); Z90.49 Acquired absence of other specified parts of digestive tract; R11.2 Nausea with vomiting, unspecified
CPT/HCPCS: 36415; 74177; 80053; 81001; 83690; 85025; 96372; 96374; 96375; 99284; J1630; J2470; Q9967